=== PATIENT | female | born 1945 | race Caucasian/White ===

== ENCOUNTER 2023-09-20 08:22 | Inpatient (IN) ==
--- NOTE | 2023-09-20 09:10 | Emergency Department Note ---
Impression & Plan Lacunar stroke ED Provider Note NAME: PUMA TENA AGE: 78 SEX: F : 1945 ARRIVES VIA: Walk-In INFORMANT: Patient, ED PROVIDER(S): Tim Calderon MD CHIEF COMPLAINT: Right hand weakness HPI: This is an 78-year-old female presenting for right hand weakness. Patient states that on Sunday, 5 days ago, she noted a change in her handwriting. She notes no weakness about the arm, other extremities. She notes that her voice is little softer than usual but no dysarthria or aphasia. No walking without any difficulty otherwise. She has no fever, chills, nausea, vomiting. She notes a slight cough. No shortness of breath or chest pain. ROS: See above HPI for pertinent positives & negatives. A total of 10 systems reviewed and were otherwise negative. PAST MEDICAL HISTORY: See Below PAST SURGICAL HISTORY: See Below FAMILY HISTORY: See Below SOCIAL HISTORY: See Below HOME MEDICATIONS: See Below ALLERGIES: See Below VITALS: See Below PHYSICAL EXAMINATION: General: resting comfortably in no acute distress Head: Normocephalic and atraumatic Eyes: Normal inspection, extraocular muscles intact Ear, nose, throat: Normal external exam Neck: Normal range of motion Respiratory: lungs clear to auscultation bilaterally Cardiovascular: Regular rate/rhythm, no murmur GI: soft, nontender, no guarding or rebound Extremities: nontender, moves all extremities Neuro: The patient awake and alert, appropriately conversive, no focal deficits, symmetric faces Skin: Warm, dry, and intact MEDICAL DECISION MAKING: This is a 78-year-old female with right hand weakness x 5 days. Patient has no other neurologic symptoms. On my assessment there is no motor strength deficits. No sensation deficits. No dysmetria. NIH is 0. -CT of the head does reveal age age-indeterminate lacunar infarct -Otherwise no acute process -Blood work otherwise largely unrevealing -Due to patient's current history, previously infarct without clear workup, will admit for further stroke rule out Differential diagnosis: Stroke, hemorrhage, encephalopathy ER treatment provided: See below Diagnostics interpreted by me: ECG: ECG independently interpreted by me with normal sinus rhythm, rate of 66, normal axis, normal DE, normal QRS, normal QTc, no ST segment elevations consistent with STEMI criteria Cardiac Monitoring: An order was placed for continuous cardiac monitoring. The monitor shows a rate of 84 with sinus rhythm. Laboratory studies: As stated above and show below. Imaging studies: See below. Past Med/Surg History Medical History (Updated 09/21/23 @ 17:58 by Tim Calderon MD) Lacunar stroke Osteoarthritis Dysmetria Hyperlipidemia Surgical History History of hysterectomy Family History Other No pertinent family history Social History Smoking Status: Never smoker Second Hand Exposure: No; Hx Alcohol Use: No Hx Substance Use: No Preferred Language: Latvian Communication Ability: Effective Top Polisher Required: No Beliefs That Will Affect Care: None marital status: Current Living Situation: Spouse current occupational status: other Other Information That Helps Us Care for You: No Feels Safe at Home: Yes Safety Concerns: Feels Safe At This Time Childhood Exposure to Second-Hand Smoke: Yes caffeine: Yes Dental Care, Regularly: No Assistive Devices: None Allergies Allergies Allergy/AdvReac Type Severity Reaction Status Date / Time No Known Allergies Allergy Verified 09/18/23 10:11 Home Meds Home Medications Medication Instructions Recorded Confirmed fluticasone propionate 50 2 sprays intranasal DAILY PRN Other 10/01/19 09/20/23 mcg/actuation nasal spray,suspension Previous Rx's Medication Instructions Recorded omeprazole 20 mg capsule,delayed 20 mg PO DAILY #90 caps 05/21/23 release Results & Data (ED) Vital Signs Vital Signs - 24 hr 09/20/23 08:22 09/20/23 08:55 Temperature 36.6 C Temperature Source Temporal Artery Scan Pulse Rate 83 Pulse Rate [Right Finger] 79 Pulse Rhythm [Right Finger] Regular Pulse Strength [Right Finger] Normal Respiratory Rate 18 12 Respiratory Effort / Characteristics Non-Labored Respiratory Depth Normal Blood Pressure 165/68 H Blood Pressure [Left Arm] 144/75 H Blood Pressure Mean 100 Blood Pressure Mean [Left Arm] 98 Pulse Oximetry 99 97 Oxygen Delivery Method Room Air Sepsis Recent Fever Within 48 Hours No Sepsis New/Unexplained Change in Mental Status N/A Sepsis Action Taken by Nursing No Action Required Laboratory Data 09/21/23 03:53 09/21/23 03:53 Lab Results 09/20/23 09/20/23 Range/Units 09:07 09:24 WBC 7.83 (4.8-10.8) K/ul RBC 4.44 (4.20-5.40) M/uL Hgb 13.5 (12.0-16.0) g/dl Hct 41.8 (37.0-47.0) % MCV 94.1 (80.0-100.0) fL MCH 30.4 (25.0-34.0) pg MCHC 32.3 (32.0-36.0) g/dL RDW Std Deviation 49.3 H (36.4-46.3) fL RDW Coeff of Yanet 14.4 (11.5-14.5) % Plt Count 251 (130-400) K/uL MPV 9.7 (9.4-12.4) fL Immature Gran % (Auto) 0.1 % Neut % (Auto) 80.3 % Lymph % (Auto) 14.6 % Bollinger % (Auto) 3.2 % Eos % (Auto) 0.9 % Baso % (Auto) 0.9 % Neut # (Auto) 6.29 (1.40-6.50) K/uL Lymph # (Auto) 1.14 L (1.20-3.40) K/uL Bollinger # (Auto) 0.25 (0.11-0.59) K/uL Eos # (Auto) 0.07 (0.00-0.50) K/uL Baso # (Auto) 0.07 (0.00-0.20) K/uL Immature Gran # (Auto) 0.01 (0.01-0.20) K/uL Sodium 139 (136-145) mmol/L Potassium 4.3 (3.5-5.1) mmol/L Chloride 106 (98-107) mmol/L Carbon Dioxide 22 (21-32) mmol/L Anion Gap 11 (3-11) BUN 9 (6-23) mg/dl Creatinine 0.58 L (0.6-1.2) mg/dl Est Cr Clr Drug Dosing 64.2 ml/min Est GFR ( Amer) 103.0 ml/min Est GFR (Non-Af Amer) 88.9 ml/min BUN/Creatinine Ratio 15.5 (10-20) Glucose 98 (70-99(Fasting)) mg/dl Calcium 9.3 (8.6-10.3) mg/dl Troponin I High Sens 3.1 (0-14) pg/ml SARS-CoV-2 (PCR) NEGATIVE (Negative) Influenza Type A (PCR) Negative (Neg) Influenza Type B (PCR) Negative (Neg) RSV (RT-PCR) Negative (Neg) Administered Medications Acetaminophen (Acetaminophen 500 Mg Tab) 500 mg PO Q4H PRN PRN Reason: pain/fever/headache Stop: 10/20/23 18:59 Last Admin: 09/21/23 07:08 Dose: 500 mg Documented By: CHILDCARE AIDE Admin: 09/20/23 20:55 Dose: 500 mg Documented By: CHILDCARE AIDE Aspirin (Aspirin 81 Mg Ectab) 81 mg PO [facility] Stop: 10/21/23 08:59 Last Admin: 09/21/23 08:45 Dose: 81 mg Documented By: DLN Atorvastatin Calcium (Atorvastatin 40 Mg Tab) 40 mg PO [facility] Stop: 10/21/23 08:59 Last Admin: 09/21/23 08:44 Dose: 40 mg Documented By: DLN Diclofenac Sodium (Diclofenac Sod 1% Gel 100 Gm Tube) 2 gm EXT TID PRN; Protocol PRN Reason: Pain Stop: 10/20/23 20:59 Last Admin: 09/20/23 20:56 Dose: 2 gm Documented By: CHILDCARE AIDE Enoxaparin Sodium (Enoxaparin Inj 40 Mg/0.4 Ml Syr) [facility] Stop: 10/21/23 08:59 Last Admin: 09/21/23 08:45 Dose: 40 mg Documented By: ANDRESN Sodium Chloride (Nss) 1,000 mls @ 80 mls/hr IV .[id number] [facility] Stop: 10/21/23 17:44 Last Admin: 09/21/23 17:54 Dose: 80 mls/hr Documented By: ANDRESN Melatonin (Melatonin 3 Mg Tab) 6 mg PO HS PRN PRN Reason: Sleep Stop: 10/20/23 18:56 Last Admin: 09/20/23 20:56 Dose: 6 mg Documented By: CHILDCARE AIDE Pantoprazole Sodium (Pantoprazole 40 Mg Tab) 40 mg PO DAILY [facility] Stop: 10/21/23 08:59 Last Admin: 09/21/23 08:45 Dose: 40 mg Documented By: KENNA Discontinued Medications Acetaminophen (Acetaminophen 500 Mg Tab) 1,000 mg PO NOW STA Stop: 09/20/23 11:25 Last Admin: 09/20/23 12:09 Dose: 1,000 mg Documented By: ANYA Aspirin (Aspirin 81 Mg Chew) 324 mg PO NOW ONE Stop: 09/20/23 11:12 Last Admin: 09/20/23 12:09 Dose: 324 mg Documented By: ANYA Sodium Chloride (Nss) 500 mls @ 125 mls/hr IV .Q4H JHONATHAN Stop: 09/21/23 16:44 Last Infusion: 09/21/23 17:12 Dose: Infused Documented By: Admin: 09/21/23 13:01 Dose: 125 mls/hr Documented By: KENNA Ioversol (Optiray 320 125ml) 118 ml IV ONCE ONE Stop: 09/21/23 12:05 Last Admin: 09/21/23 12:04 Dose: 118 ml Documented By: ULISES Discharge Plan Visit Data Chief Complaint: Illness Stated Complaint: POSSIBLE BLOOD CLOT, ALTERED MENTAL ED Provider: Tim Calderon Discharge Problem: Lacunar stroke Patient Disposition: Admitted As Inpatient Discharge Instructions Interventions: ED Discharge Assessment Last Done: 09/20/23 12:18
[2023-09-20 09:21] LABS: Basophils # (auto) 0.07 K/uL (0.00-0.20); Basophils % (auto) 0.9 %; Eosinophils # (auto) 0.07 K/uL (0.00-0.50); Eosinophils % (auto) 0.9 %; Hematocrit (blood only) 41.8 % (37.0-47.0); Hemoglobin 13.5 g/dl (12.0-16.0); Immature Granulocytes # (auto) 0.01 K/uL (0.01-0.20); Immature Granulocytes % (auto) 0.1 %; Lymphocytes # (auto) 1.14 K/uL (1.20-3.40); Lymphocytes % (auto) 14.6 %; Mean Corpuscular Hemoglobin 30.4 pg (25.0-34.0); Mean Corpuscular Hgb Conc 32.3 g/dL (32.0-36.0); Mean Corpuscular Volume 94.1 fL (80.0-100.0); Mean Platelet Volume 9.7 fL (9.4-12.4); Monocytes # (auto) 0.25 K/uL (0.11-0.59); Monocytes % (auto) 3.2 %; Neutrophils # (auto) 6.29 K/uL (1.40-6.50); Neutrophils % (auto) 80.3 %; Platelet Count 251 K/uL (130-400); RDW Coefficient of Variation 14.4 % (11.5-14.5); RDW Standard Deviation 49.3 fL (36.4-46.3); Red Blood Count 4.44 M/uL (4.20-5.40); White Blood Count 7.83 K/ul (4.8-10.8)
--- NOTE | 2023-09-20 09:30 | CT Scan Report ---
CT SCAN OF THE BRAIN WITHOUT IV CONTRAST CLINICAL HISTORY: Right hand weakness. COMPARISON STUDY: No priors. TECHNIQUE: Unenhanced axial CT scan of the brain is performed from the vertex to the skull base. A do se lowering technique was utilized adhering to the principles of ALARA. CT DOSE: 625.8 mGy.cm FINDINGS: Brain parenchyma: There is an age indeterminate lacunar infarct in the left basal ganglia. There is a ge-related involutional change noting moderate subcortical and periventricular microangiopathic disea se. There is no hemorrhage, mass effect, or evidence of acute territorial ischemia by CT criteria. No extra-axial fluid collection is seen. Ventricles, sulci, cisterns: Prominent secondary to involutional change. Intracranial vasculature: There is atherosclerotic calcification of the cavernous carotid and vertebr al arteries. Calvarium: Unremarkable. Sinuses and mastoids: There is moderate mucosal thickening in the right maxillary antrum. The remaini ng visualized paranasal sinuses are clear. The mastoid air cells are well pneumatized. Orbits: The bony orbits are grossly intact. There are bilateral ocular lens implants. IMPRESSION: 1. There is no hemorrhage, mass effect, or evidence of acute territorial ischemia by CT criteria. 2. Age indeterminate lacunar infarct in the left basal ganglia. Correlate clinically. If warranted th is could be further assessed by MRI. ACT 112: Negative or not required by law. Electronically signed by: Ankush Jeong M.D. 09/20/2023 9:28 AM
[2023-09-20 09:36] LABS: BUN Creatinine Ratio 15.5 (10-20); Calcium 9.3 mg/dl (8.6-10.3); Creatinine Clr Calc Pharmacy 64.2 ml/min; Est GFR (Non-African American) 88.9 ml/min; Potassium 4.3 mmol/L (3.5-5.1)
[2023-09-20 09:41] LABS: Troponin I High Sensitivity 3.1 pg/ml (0-14)
[2023-09-20 10:21] LABS: Influenza A virus by PCR Negative (Neg); Influenza B virus by PCR Negative (Neg); RSV by PCR Negative (Neg); SARS CoV2 RNA(COVID-19) Ceph NEGATIVE (Negative)
--- NOTE | 2023-09-20 10:40 | History & Physical Report ---
Date of Service September 20, 2023 Assessment & Plan (1) Dysmetria: Plan: Strokelike symptoms, right hand dysmetria Patient reports abrupt right hand worsened coordination and dysmetria onset 09/16/2023 and not significantly changed since that time.. At bedside evaluation has trace dysmetria on the right compared to the left otherwise no focal neurologic symptoms appreciated. Sensation intact in upper and lower extremities bilaterally CThead with evidence of age-indeterminate left basal ganglier lacunar stroke MRI brain, angiography, ultrasound of the neck pending No history of A-fib, Limited echo for bubble study pending. Patient denies chest pain and dyspnea preceding this Patient is outside of the window for TNKase/not a candidate. Mild/minimal residual symptoms. Aspirin given, daily aspirin and atorvastatin started. Patient is outside the window for permissive hypertension, she is normotensive at time of admitting assessment. (2) Osteoarthritis: Plan: Patient has a history of osteoarthritis ( and records report that this is not rheumatoid) for which she travels yearly to [place] (contact information in H&P) and has received treatment at that center Discussed medical history with Dr. Casey Gusman [facility] at time of admission. Reports patient has been treated for osteoporosis and general arthritis with vitamin infusions, and stem cell infusions. Last infusion this past month. She has subsequently been started on methotrexate 2.5 mg 2.5 mg 3 times per week (Sunday/Sunday/Sunday) in addition to multivitamins and calcium. Unclear underlying type of arthritis, no imaging or labs available for immediate review. Pending copies of records from patient's . Methotrexate temporarily held pending records/collateral (3) Heartburn: Plan: Continue PPI daily (4) Hyperlipidemia: Plan: Statin as noted (5) Lacunar stroke: Plan DVT prophylaxis: Lovenox Disposition: Medical telemetry for completion of stroke workup CODE STATUS: DNR/DNI Diet: Heart healthy History of Present Illness Primary Care Provider: Ana M Wasserman PA-C Kina Du is a 78-year-old female with past medical history of GERD who was seen by her PCP for 3-4 days of fatigue on 09/12/2023 Patient is an [place] female who reports that she also gets medical care in [place] and [place], several times a year has various treatments including chemical chelation which improves chronic neck pain but have not improved her energy. She presents to the ER 09/20/2023 with focal right hand weakness, and notes that 5 days ago she had difficulty with handwriting. She is right arm dominant. She has not had expressive or receptive aphasia, no facial droop, no one-sided lower extremity weakness although does feel weak all over. On ER evaluation she has no leukocytosis, hemoglobin is normal, BMP is without derangement, high-sensitivity troponin is normal, and quad screen is negative. CT of the head shows a age-indeterminate left basal ganglia infarct, and otherwise no acute territorial ischemia/mass effect/hemorrhage EKG shows normal sinus rhythm without territorial ischemia. No afib Kina reports she has had trouble with handwriting with her RIGHT handonly, and some change in voice. Denies aphasia, but notes her speech and voice has been different. Denies slurring, but has had a change she can't fully describe. Endorses intermittent headaches chronically which improve with tylenol or ibuprofen. Tries not to take too much ibuprofen due to GERD, tylenol works better for her. No chest pain or chest pressure No fevers, chills, or sweats No abdominal pain Peeing normally. Denies weakness. NOtes her handwriting suddenly changed, was more difficult and clumbsy to write. Started abruptly on Sunday. Endorses past history of arthritis pain in her neck which is completely resolved. Was in [place] a few weeks ago, came back last . Travels [facility] for the last 27 years. Travels by train, gets up and walks regularly. no leg pain, no leg swelling. No shortness of breath or dyspnea. Gets vitamins C infusions in [place], denies history of heavy metal tx or chelation. She did have an MRI for her neck arthritis which improved with vitamin infusions. Now does well with just tylenol or ibuprofen. Did also have a EGD which showed an ulcer a few weeks ago/august. Will avoid further NSAIDS. Had a colonoscopy with it which was normal. Dr. Peña . [facility] Dr. Casey Myers [place] and [facility]. [phone] ext [phone] -> ask for Dr. Casey Heard Discussed with Dr. Casey Jameson at info above. Reports patient was seen in their clinic for osteoporosis and arthritis of the neck, MRI did not show any bony lesions or abnormalities. Due to severe osteoarthritis patient was treated with vitamin infusions, stem cell infusion, and has been on methotrexate 2.5 mg Sunday/Sunday/Fridays which she has been continued on. He reports that she has been on additional vitamin infusions. Reports no infusions have any evidence suggesting increased stroke risk, and no other active ingredients. D per patient medications are as below: [facility] collateral [facility] MEthotrexate Sunday/Sunday/Sunday 2.5 mg TI Somazina RMsol Q12H Unival before meals Senna BID Nopal y Linaza Q12H Angeliq 1 tab after breakfast Proesse 1 tab after breakfast Allergies Allergy/AdvReac Type Severity Reaction Status Date / Time No Known Allergies Allergy Verified 09/18/23 10:11 Home Medications Medication Instructions Recorded Confirmed Type fluticasone propionate 50 2 sprays intranasal DAILY PRN Other 10/01/19 09/20/23 History mcg/actuation nasal spray,suspension omeprazole 20 mg capsule,delayed 20 mg PO DAILY #90 caps 05/21/23 09/20/23 Rx release Past Med/Surg History Medical History (Updated 09/20/23 @ 11:26 by Vu Shaffer MD) Lacunar stroke Osteoarthritis Dysmetria Hyperlipidemia Surgical History History of hysterectomy Family History Other No pertinent family history Social History Smoking Status: Never smoker Second Hand Exposure: No; Hx Alcohol Use: No Hx Substance Use: No Preferred Language: Uzbek marital status: Current Living Situation: Spouse current occupational status: other Feels Safe at Home: Yes Childhood Exposure to Second-Hand Smoke: Yes caffeine: Yes Dental Care, Regularly: No Physical Exam Physical Exam: General: A&Ox3. NAD. Cooperative. HEENT: Atraumatic, normocephalic. Pulm: CTAB A&P. -wheezes, -rales, -rhonchi. Symmetrical chest rise. No increased work of breathing. No respiratory distress. Cardiac: RRR, -mrg. Radial pulses intact and symmetrical. Abdominal: Nontender, nondistended, soft. BS present. CRANIAL NERVES: II: Pupils equal and reactive, no relative afferent pupillary defect, no VF cuts III, IV, : EOM intact, no gaze preference or deviation, no nystagmus. V: normal sensation in V1, V2, and V3 segments bilaterally VII: no asymmetry, no nasolabial fold flattening VIII: normal hearing to speech IX, X: normal palatal elevation, no uvular deviation XI: 5/5 head turn and 5/5 shoulder shrug bilaterally XII: midline tongue protrusion MOTOR: RUE: 5/5 Elbow flexion/extension, wrist flexi on/extension 5/5 sander and buffer strength, finger flexion/extens ion, interosseus LUE: 5/5 Elbow flexion/extension, wrist flexi on/extension 5/5 sander and buffer strength, finger flexion/extens ion, interosseus RLE: 5/5 to hip flexion, knee flexion/extensi on, ankle dorsiflexion/plantarflexion LLE: 5/5 to hip flexionn, knee flexion/extens ion, ankle dorsiflexion/plantarflexion SENSORY: Normal to touch, in upper and lower extremities without deficit or asymmetry COORD: LEFT Normal finger to nose and heel to rey, no tremor, no dysmetria. Trace dysmetria on R finger to nose tending. Results & Data Results & Data Vital Signs (Past 12 Hours) Vital Signs Temp Pulse Pulse Resp BP BP Pulse Ox 09/20/23 09:40 71 18 127/68 100 09/20/23 09:15 75 09/20/23 08:55 79 12 144/75 H 97 09/20/23 08:50 70 18 158/95 H 99 09/20/23 08:22 36.6 C 83 18 165/68 H 99 O2 Del Method 09/20/23 09:40 Room Air 09/20/23 09:15 09/20/23 08:55 Room Air 09/20/23 08:50 Room Air 09/20/23 08:22 PG Care Time/CCT Total # of Minutes Spent Total Time Spent with Patient: Total time spent is greater than 50% in coordination of care (as documented) at patient's floor/unit and/or counseling patient: Coding Level of Care Code 38324 INT INP/OBS CARE 3/75MIN Diagnoses Dysmetria R27.8 Osteoarthritis M19.90 Heartburn R12 Hyperlipidemia E78.5 Lacunar stroke I63.81
[2023-09-20] MEDS ORDERED: PHARMACIST DISCHARGE MED REC CONSULT PRN (11:05)
[2023-09-20] MEDS ORDERED: ASPIRIN 81 MG CHEW PO ONE (11:11)
[2023-09-20] MEDS ORDERED: ACETAMINOPHEN 500 MG TAB PO STA (11:24)
[2023-09-20 12:26] LABS: Appearance Urine Clear (Clear); Bilirubin Urine Negative (Negative); Blood Urine Negative (Negative); Color Urine Yellow; Glucose Urine UA Negative (Negative); Ketones Urine 1+ (Negative); Leukocyte Esterase Urine Negative (Negative); Nitrite Urine Negative (Negative); Protein Urine Negative (Negative); Specific Gravity Urine 1.007 (1.000-1.030); Urobilinogen Urine Negative (Negative); pH Urine 6.5 (4.5-7.5)
--- NOTE | 2023-09-20 13:57 | XRay Report ---
KUB HISTORY: Screening for MRI MRI COMPARISON: None. FINDINGS: Left mid and upper abdominal surgical clips. Calcifications project over the gluteal distri bution/lower lateral abdomen. There is mild to moderate colonic fecal retention. Nonobstructive bowel gas pattern. Renal shadows obscured by bowel gas. No renal calculi. No ureteral calculi. No pneumop eritoneum or pneumatosis. No fracture. IMPRESSION: 1. Nonobstructive bowel gas pattern. 2. Left upper and left mid abdominal surgical clips. ACT 112: Negative or not required by law. The above report was generated using voice recognition software. It may contain grammatical, syntax o r spelling errors. Electronically signed by: Mehdi Titus M.D. 09/20/2023 1:55 PM
--- NOTE | 2023-09-20 15:11 | Magnetic Resonance Report ---
MR brain wo con HISTORY: 78 years-old Female cva acute right hand weakness with stroke like symptoms for approximate ly 5 days. COMPARISON: Head CT of same day TECHNIQUE: Multiplanar multisequence MRI of the brain was obtained without the use of IV contrast. FINDINGS: 2.5 x 1.3 cm focus of restricted diffusion is noted within the left cutler radiata/aspect of the left lentiform nucleus on image 14 series 4 with mildly decreased signal on ADC map, increased T2/FLAIR s ignal. No additional restricted diffusion identified. No acute intracranial hemorrhage, midline shift , abnormal extra axial collection, hydrocephalus or other intra-axial mass. Involutional changes with mild to moderate T2/FLAIR hyperintense foci throughout the white matter. Cerebral venous sinuses and major arterial flow voids appear patent. Prior bilateral lens repair. Chr onic volume loss with mucosal thickening in the left maxillary sinus. IMPRESSION: 1. Acute to subacute appearing 2.5 cm infarct of the left frontal lobe cutler radiata/superior aspect of the left lentiform nucleus. 2. No acute intracranial hemorrhage, midline shift or hydrocephalus. 3. Involutional changes with chronic microvascular ischemic disease. ACT 112: Negative or not required by law. The above report was generated using voice recognition software. It may contain grammatical, syntax o r spelling errors. Electronically signed by: Mehdi Titus M.D. 09/20/2023 3:10 PM
--- NOTE | 2023-09-20 15:23 | Magnetic Resonance Report ---
Brain MRA HISTORY: Right hand weakness. Stroke. TECHNIQUE: 3-D [id number] MRA of the brain was performed without contrast. COMPARISON STUDY: Head CT 09/20/2023. FINDINGS: Visualized intracranial internal carotid arteries, distal vertebral arteries, and basilar a rtery are widely patent. There is no significant stenosis, occlusion, or aneurysm seen within the betty ateral ACAs, MCAs, or cold header. IMPRESSION: No significant stenosis, occlusion, or aneurysm within the [place]. ACT 112: Negative or not required by law. Electronically signed by: Sukh Parada M.D. 09/20/2023 3:22 PM
--- NOTE | 2023-09-20 16:19 | Ultrasound Report ---
ULTRASOUND OF THE CAROTID ARTERIES CLINICAL HISTORY: Stroke. COMPARISON STUDY: No priors. TECHNIQUE: Real-time, grayscale, and color Doppler sonography of the carotid arteries is performed. I mages are reviewed in the transverse and longitudinal planes. FINDINGS: The carotid arteries are patent bilaterally and demonstrate antegrade flow. There is minimal atherosc lerotic plaque seen in the carotid bulbs. Normal doppler arterial waveforms are seen throughout. [facility] measurements are listed below. Common carotid peak systolic velocity (cm/sec): RIGHT: 64 LEFT: 66 ICA proximal peak systolic velocity (cm/sec): RIGHT: 58 LEFT: 58 ICA mid peak systolic velocity (cm/sec): RIGHT: 69 LEFT: 64 ICA distal peak systolic velocity (cm/sec): RIGHT: 69 LEFT: 59 ICA/CC peak systolic ratio: RIGHT: 1. LEFT: 1.0 Antegrade flow was shown in the vertebral arteries. The external carotid arteries are patent. IMPRESSION: 1. There is no sonographic evidence of hemodynamically significant stenosis in the right or left [place] arterial system. 2. Antegrade flow is shown in the vertebral arteries. ACT 112: Negative or not required by law. Electronically signed by: Ankush Jeong M.D. 09/20/2023 4:18 PM
--- NOTE | 2023-09-20 18:07 | XCELERA ---
[id number] [email or web address]\[id number]
[2023-09-20] MEDS ORDERED: DICLOFENAC SOD 1% GEL 100 GM TUBE EXT PRN (20:10)
[2023-09-20] MEDS: ACETAMINOPHEN 500 MG TAB PO PRN (20:55)
[2023-09-20] MEDS: MELATONIN 3 MG TAB PO PRN (20:56)
[2023-09-21 04:55] LABS: Basophils # (auto) 0.06 K/uL (0.00-0.20); Basophils % (auto) 0.9 %; Eosinophils # (auto) 0.21 K/uL (0.00-0.50); Eosinophils % (auto) 3.1 %; Hematocrit (blood only) 37.3 % (37.0-47.0); Hemoglobin 12.1 g/dl (12.0-16.0); Immature Granulocytes # (auto) 0.02 K/uL (0.01-0.20); Immature Granulocytes % (auto) 0.3 %; Lymphocytes # (auto) 1.47 K/uL (1.20-3.40); Lymphocytes % (auto) 21.5 %; Mean Corpuscular Hgb Conc 32.4 g/dL (32.0-36.0); Mean Corpuscular Volume 92.6 fL (80.0-100.0); Mean Platelet Volume 9.9 fL (9.4-12.4); Monocytes # (auto) 0.43 K/uL (0.11-0.59); Monocytes % (auto) 6.3 %; Neutrophils # (auto) 4.65 K/uL (1.40-6.50); Neutrophils % (auto) 67.9 %; Platelet Count 261 K/uL (130-400); RDW Coefficient of Variation 14.2 % (11.5-14.5); RDW Standard Deviation 48.3 fL (36.4-46.3); Red Blood Count 4.03 M/uL (4.20-5.40); White Blood Count 6.84 K/ul (4.8-10.8)
[2023-09-21 05:08] LABS: BUN Creatinine Ratio 22.7 (10-20); Calcium 8.8 mg/dl (8.6-10.3); Chol HDL Ratio 3.3 (0-5); Creatinine Clr Calc Pharmacy 56.5 ml/min; Est GFR (African American) 98.8 ml/min; Est GFR (Non-African American) 85.2 ml/min; Potassium 3.8 mmol/L (3.5-5.1)
[2023-09-21] MEDS: ACETAMINOPHEN 500 MG TAB PO PRN ×2 (07:08→19:49)
[2023-09-21 07:27] LABS: Estimated Average Glucose 108 mg/dl; Hemoglobin A1C 5.4 % (4.5-5.6)
[2023-09-21] MEDS: ATORVASTATIN 40 MG TAB PO SCH (08:44)
[2023-09-21] MEDS: ENOXAPARIN INJ 40 MG/0.4 ML SYR SQ SCH (08:45)
[2023-09-21] MEDS: PANTOprazole 40 MG TAB PO SCH (08:45)
[2023-09-21] MEDS: ASPIRIN 81 MG ECTAB PO SCH (08:45)
--- NOTE | 2023-09-21 09:09 | Pharmacy Report ---
- Date of Service September 21, 2023 - Pharmacy CVA/TIA Medication Review Medications to Prevent Stroke handout has been added to the patients discharge packet. Antiplatelet(s) * Aspirin 81 mg PO daily Cholesterol * High intensity statin: atorvastatin 40 mg daily DVT Prophylaxis * Provider to order SC Heparin today if patient stays Therapeutic Anticoagulation * No history of Afib/Aflutter noted Type 2 Diabetes * Patient does not have T2DM
[2023-09-21] MEDS ORDERED: OPTIRAY 320 125ml IV ONE (12:04)
--- NOTE | 2023-09-21 12:17 | CT Scan Report ---
CT ANGIOGRAM OF THE CHEST CLINICAL HISTORY: Tachycardia. COMPARISON STUDY: No priors. TECHNIQUE: Following the IV administration of 118 cc of Optiray 320, CT angiogram of the chest was pe rformed from the upper abdomen to the thoracic inlet utilizing the pulmonary embolus protocol. Images are reviewed in the axial, sagittal, and coronal planes. 3-D MIPS images are created and assessed. I V contrast was administered without complication. A dose lowering technique was utilized adhering to the principles of ALARA. CT DOSE: 374.11 mGy.cm FINDINGS: Thyroid: Normal in size and heterogeneous in attenuation. Thoracic aorta: There is atherosclerotic calcification of the thoracic aorta, which is normal in [place] and demonstrates standard 3-vessel arch anatomy. No dissection is seen. Pulmonary vasculature: The pulmonary trunk is normal in caliber. There are no filling defects identif ied in main, lobar, or segmental pulmonary branches to suggest pulmonary embolus. Heart: The heart is enlarged and without pericardial effusion. The coronary arteries are densely calc ified. Lungs and pleural spaces: Evaluation of the lung parenchyma is degraded by motion artifact. There is no airspace consolidation or pleural effusion. Dependent scarring/atelectasis is noted at the lung ba ses. The trachea and central airways are clear. There are scattered calcified granulomas. A 3 mm righ t middle lobe pulmonary nodule is seen on image #62 and a 3 mm nodule in the lingula is seen on image #99. Mediastinum: There is no mediastinal lymphadenopathy. Katherin: Clear. Axillae: There is no axillary lymphadenopathy. Upper abdomen: Postoperative change is suggested in the stomach. Partially visualized upper abdominal viscera is otherwise grossly unremarkable. Skeletal structures: The skeletal structures are osteopenic. Degenerative change is noted in the shou lders and spine. No lytic or blastic bony lesions are seen. IMPRESSION: 1. There is no evidence of pulmonary embolus in the main, lobar, or segmental pulmonary arteries. 2. There is no airspace consolidation or pleural effusion. 3. Cardiomegaly. 4. Additional findings as above. ACT 112: Negative or not required by law. Electronically signed by: Ankush Jeong M.D. 09/21/2023 12:16 PM
[2023-09-21] MEDS ORDERED: SODIUM CHLORIDE 0.9% 500 ML IV SCH (12:45)
--- NOTE | 2023-09-21 17:37 | Hospitalist Progress Note ---
Date of Service September 21, 2023 Assessment & Plan (1) Stroke: Plan: MRI brain -- Acute to subacute appearing 2.5 cm infarct of the left frontal lobe cutler radiata/superior aspect of the left lentiform nucleus. Likely a small vessel stroke. MRA brain negative. Carotid duplex study negative. Echo w/o source of thrombus. Tele without a.fib. lipid profile parameters noted. start asa 81mg daily for secondary prevention. start lipitor 40mg daily for secondary prevention. hba1c without evidence of T2DM. PT, OT, speech evals noted. Rehab not needed post-d/c. (2) Hyperlipidemia: Plan: lipid parameters -- LDL - 111. HDL - 60. Triglycerides - 124. start lipitor 40mg daily (3) Sinus tachycardia: Plan: 2nd to volume depletion? +orthostatic BPs this afternoon. TSH wnl. CBC wnl. Echo with preserved EF. CTA chest - obtained due to recent travel from [place] - NO PE. Gave 500cc of NS post-CTA chest; since still a little tachy and still with orthostasis will continue IV fluids overnight. Plan DVT proph - lovenox 40mg daily change observation to full admission status anticipate d/c home tomorrow Admission and Anticipated Discharge Date Admission Date: September 20, 2023 Subjective tele overnight - NSR, sinus tach with activity - sometimes up to 140s/150s no a.fib or a.flutter patient reports ongoing mild right hand weakness and dyspraxia no right arm or right leg weakness no left sided symptoms speech - according to pt's - is still a little slurred but no worse than yesterday patient reports having traveled back from [place] within the last 1-[address] Review of Systems Review of Systems: cv - no chest pain pulm - no dyspnea GI - no abd pain Physical Exam Physical Exam: gen - NAD, pleasant mouth - MM slightly dry neck - no JVD heart - RRR, s1 s2, no murmur lungs - CTA b/l abd - soft NT ND BS+ ext - no edema, pulses 2+ b/l neuro - no facial droop; speech slightly dysarthric; rapid alternating movements right hand modestly impaired relative to left hand; finger/nose/finger maneuver wnl b/l; strength - all muscle groups 5/5 except R hand 4-5/5; gait not tested Results & Data Results & Data Vital Signs (Past 12 Hours) Vital Signs Temp Pulse Pulse Resp BP Pulse Ox O2 Del Method 09/21/23 15:55 36.7 C 84 16 125/74 96 Room Air 09/21/23 15:00 82 09/21/23 11:23 36.6 C 82 17 113/69 94 Room Air 09/21/23 08:20 36.7 C 71 16 122/70 94 Room Air 09/21/23 07:35 68 09/21/23 07:35 Room Air Laboratory Results Laboratory Results - last 24 hr 09/21/23 03:53 WBC 6.84 RBC 4.03 L Hgb 12.1 Hct 37.3 MCV 92.6 MCH 30.0 MCHC 32.4 RDW Std Deviation 48.3 H RDW Coeff of [place] 14.2 Plt Count 261 MPV 9.9 Immature Gran % (Auto) 0.3 Neut % (Auto) 67.9 Lymph % (Auto) 21.5 [place] % (Auto) 6.3 Eos % (Auto) 3.1 Baso % (Auto) 0.9 Neut # (Auto) 4.65 Lymph # (Auto) 1.47 [place] # (Auto) 0.43 Eos # (Auto) 0.21 Baso # (Auto) 0.06 Immature Gran # (Auto) 0.02 Sodium 136 Potassium 3.8 Chloride 104 Carbon Dioxide 22 Anion Gap 10 BUN 15 Creatinine 0.66 Est Cr Clr Drug Dosing 56.5 Est GFR ( Amer) 98.8 Est GFR (Non-Af Amer) 85.2 BUN/Creatinine Ratio 22.7 H Glucose 97 Estimat Average Glucose 108 Hemoglobin A1c 5.4 Calcium 8.8 Triglycerides 124 Cholesterol 196 LDL Cholesterol, Calc 111 VLDL Cholesterol, Calc 25 HDL Cholesterol 60 Cholesterol/HDL Ratio 3.[address] 09/20/23 08:59 CT SCAN OF THE BRAIN WITHOUT IV CONTRAST CLINICAL HISTORY: Right hand weakness. COMPARISON STUDY: No priors. TECHNIQUE: Unenhanced axial CT scan of the brain is performed from the vertex to the skull base. A dose lowering technique was utilized adhering to the principles of ALARA. CT DOSE: 625.8 mGy.cm FINDINGS: Brain parenchyma: There is an age indeterminate lacunar infarct in the left basal ganglia. There is age-related involutional change noting moderate subcortical and periventricular microangiopathic disease. There is no hemorrhage, mass effect, or evidence of acute territorial ischemia by CT criteria. No extra-axial fluid collection is seen. Ventricles, sulci, cisterns: Prominent secondary to involutional change. Intracranial vasculature: There is atherosclerotic calcification of the cavernous carotid and vertebral arteries. Calvarium: Unremarkable. Sinuses and mastoids: There is moderate mucosal thickening in the right maxillary antrum. The remaining visualized paranasal sinuses are clear. The mastoid air cells are well pneumatized. Orbits: The bony orbits are grossly intact. There are bilateral ocular lens implants. IMPRESSION: 1. There is no hemorrhage, mass effect, or evidence of acute territorial ischemia by CT criteria. 2. Age indeterminate lacunar infarct in the left basal ganglia. Correlate clinically. If warranted this could be further assessed by MRI. ACT 112: Negative or not required by law. Electronically signed by: Ankush Jeong M.D. 09/20/2023 9:28 AM Brain MRI 09/20/23 11:11 MR brain wo con HISTORY: 78 years-old Female cva acute right hand weakness with stroke like symptoms for approximately 5 days. COMPARISON: Head CT of same day TECHNIQUE: Multiplanar multisequence MRI of the brain was obtained without the use of IV contrast. FINDINGS: 2.5 x 1.3 cm focus of restricted diffusion is noted within the left cutler radiata/aspect of the left lentiform nucleus on image 14 series 4 with mildly decreased signal on ADC map, increased T2/FLAIR signal. No additional restricted diffusion identified. No acute intracranial hemorrhage, midline shift, abnormal extra axial collection, hydrocephalus or other intra-axial mass. Involutional changes with mild to moderate T2/FLAIR hyperintense foci throughout the white matter. Cerebral venous sinuses and major arterial flow voids appear patent. Prior bilateral lens repair. Chronic volume loss with mucosal thickening in the left maxillary sinus. IMPRESSION: 1. Acute to subacute appearing 2.5 cm infarct of the left frontal lobe cutler radiata/superior aspect of the left lentiform nucleus. 2. No acute intracranial hemorrhage, midline shift or hydrocephalus. 3. Involutional changes with chronic microvascular ischemic disease. ACT 112: Negative or not required by law. The above report was generated using voice recognition software. It may contain grammatical, syntax or spelling errors. Electronically signed by: Mehdi Titus M.D. 09/20/2023 3:10 PM Carotid Doppler Study 09/20/23 11:14 ULTRASOUND OF THE CAROTID ARTERIES CLINICAL HISTORY: Stroke. COMPARISON STUDY: No priors. TECHNIQUE: Real-time, grayscale, and color Doppler sonography of the carotid arteries is performed. Images are reviewed in the transverse and longitudinal planes. FINDINGS: The carotid arteries are patent bilaterally and demonstrate antegrade flow. There is minimal atherosclerotic plaque seen in the carotid bulbs. Normal doppler arterial waveforms are seen throughout. Velocity measurements are listed below. Common carotid peak systolic velocity (cm/sec): RIGHT: 64 LEFT: 66 ICA proximal peak systolic velocity (cm/sec): RIGHT: 58 LEFT: 58 ICA mid peak systolic velocity (cm/sec): RIGHT: 69 LEFT: 64 ICA distal peak systolic velocity (cm/sec): RIGHT: 69 LEFT: 59 ICA/CC peak systolic ratio: RIGHT: 1. LEFT: 1.0 Antegrade flow was shown in the vertebral arteries. The external carotid arteries are patent. IMPRESSION: 1. There is no sonographic evidence of hemodynamically significant stenosis in the right or left carotid arterial system. 2. Antegrade flow is shown in the vertebral arteries. ACT 112: Negative or not required by law. Electronically signed by: Ankush Jeong M.D. 09/20/2023 4:18 PM Head MRA 09/20/23 11:14 Brain MRA HISTORY: Right hand weakness. Stroke. TECHNIQUE: 3-D [id number] MRA of the brain was performed without contrast. COMPARISON STUDY: Head CT 09/20/2023. FINDINGS: Visualized intracranial internal carotid arteries, distal vertebral arteries, and basilar artery are widely patent. There is no significant stenosis, occlusion, or aneurysm seen within the bilateral ACAs, MCAs, or medical referral coordinator. IMPRESSION: No significant stenosis, occlusion, or aneurysm within the [place]. ACT 112: Negative or not required by law. Electronically signed by: Sukh Parada M.D. 09/20/2023 3:22 PM KUB X-Ray 09/20/23 11:59 KUB HISTORY: Screening for MRI MRI COMPARISON: None. FINDINGS: Left mid and upper abdominal surgical clips. Calcifications project over the gluteal distribution/lower lateral abdomen. There is mild to moderate colonic fecal retention. Nonobstructive bowel gas pattern. Renal shadows obscured by bowel gas. No renal calculi. No ureteral calculi. No pneumoperitoneum or pneumatosis. No fracture. IMPRESSION: 1. Nonobstructive bowel gas pattern. 2. Left upper and left mid abdominal surgical clips. ACT 112: Negative or not required by law. The above report was generated using voice recognition software. It may contain grammatical, syntax or spelling errors. Electronically signed by: Mehdi Titus M.D. 09/20/2023 1:55 PM Chest CTA 09/21/23 10:55 CT ANGIOGRAM OF THE CHEST CLINICAL HISTORY: Tachycardia. COMPARISON STUDY: No priors. TECHNIQUE: Following the IV administration of 118 cc of Optiray 320, CT an giogram of the chest was performed from the upper abdomen to the thoracic inlet utilizing the pulmonary embolus protocol. Images are reviewed in the axial, sagittal, and coronal planes. 3-D MIPS images are created and assessed. IV contrast was administered without complication. A dose lowering technique was utilized adhering to the principles of ALARA. CT DOSE: 374.11 mGy.cm FINDINGS: Thyroid: Normal in size and heterogeneous in attenuation. Thoracic aorta: There is atherosclerotic calcification of the thoracic aorta, which is normal in caliber and demonstrates standard 3-vessel arch anatomy. No dissection is seen. Pulmonary vasculature: The pulmonary trunk is normal in caliber. There are no filling defects identified in main, lobar, or segmental pulmonary branches to suggest pulmonary embolus. Heart: The heart is enlarged and without pericardial effusion. The coronary arteries are densely calcified. Lungs and pleural spaces: Evaluation of the lung parenchyma is degraded by motion artifact. There is no airspace consolidation or pleural effusion. Dependent scarring/atelectasis is noted at the lung bases. The trachea and central airways are clear. There are scattered calcified granulomas. A 3 mm right middle lobe pulmonary nodule is seen on image #62 and a 3 mm nodule in the lingula is seen on image #99. Mediastinum: There is no mediastinal lymphadenopathy. Katherin: Clear. Axillae: There is no axillary lymphadenopathy. Upper abdomen: Postoperative change is suggested in the stomach. Partially visualized upper abdominal viscera is otherwise grossly unremarkable. Skeletal structures: The skeletal structures are osteopenic. Degenerative change is noted in the shoulders and spine. No lytic or blastic bony lesions are seen. IMPRESSION: 1. There is no evidence of pulmonary embolus in the main, lobar, or segmental pulmonary arteries. 2. There is no airspace consolidation or pleural effusion. 3. Cardiomegaly. 4. Additional findings as above. ACT 112: Negative or not required by law. Electronically signed by: Ankush Jeong M.D. 09/21/2023 12:16 PM PG Care Time/CCT Total # of Minutes Spent Total Time Spent with Patient: Total time spent is greater than 50% in coordination of care (as documented) at patient's floor/unit and/or counseling patient: Coding Level of Care Code 79471 SUB INP/OBS CARE 2/35MIN Diagnoses Stroke I63.9 Hyperlipidemia E78.5 Sinus tachycardia R00.0
[2023-09-21] MEDS: SODIUM CHLORIDE 0.9% 1,000 ML IV SCH (17:54)
[2023-09-21] MEDS: MELATONIN 3 MG TAB PO PRN (19:49)
--- NOTE | 2023-09-22 05:52 | Electrocardiogram Report ---
Test Reason : Blood Pressure : / mmHG Vent. Rate : 066 BPM Atrial Rate : 066 BPM P-R Int : 122 ms QRS Dur : 080 ms QT Int : 380 ms P-R-T Axes : -16 -08 020 degrees QTc Int : 398 ms Normal sinus rhythm Nonspecific T wave abnormality No previous ECGs available Confirmed by Hosea Sommer ([id number]) on 09/22/2023 5:51:32 AM Referred By: REFERRED SELF Confirmed By:Hosea Sommer
[2023-09-22] MEDS: SODIUM CHLORIDE 0.9% 1,000 ML IV SCH (06:40)
[2023-09-22 06:47] LABS: BUN Creatinine Ratio 24.1 (10-20); Calcium 8.8 mg/dl (8.6-10.3); Creatinine Clr Calc Pharmacy 64.2 ml/min; Est GFR (Non-African American) 88.9 ml/min; Potassium 3.8 mmol/L (3.5-5.1)
[2023-09-22] MEDS: ATORVASTATIN 40 MG TAB PO SCH (08:55)
[2023-09-22] MEDS: ENOXAPARIN INJ 40 MG/0.4 ML SYR SQ SCH (08:55)
[2023-09-22] MEDS: ASPIRIN 81 MG ECTAB PO SCH (08:55)
[2023-09-22] MEDS: PANTOprazole 40 MG TAB PO SCH (08:55)
--- NOTE | 2023-09-22 10:48 | Discharge Summary ---
Date of Service date of admission - September 20, 2023 date of discharge - September 22, 2023 Admission HPI Per Admitting Provider Kina Du is a 78-year-old female with past medical history of GERD who was seen by her PCP for 3-4 days of fatigue on 09/12/2023 Patient is an [place] female who reports that she also gets medical care in [place] and [place], several times a year has various treatments including chemical chelation which improves chronic neck pain but have not improved her energy. She presents to the ER 09/20/2023 with focal right hand weakness, and notes that 5 days ago she had difficulty with handwriting. She is right arm dominant. She has not had expressive or receptive aphasia, no facial droop, no one-sided lower extremity weakness although does feel weak all over. On ER evaluation she has no leukocytosis, hemoglobin is normal, BMP is without derangement, high-sensitivity troponin is normal, and quad screen is negative. CT of the head shows a age-indeterminate left basal ganglia infarct, and otherwise no acute territorial ischemia/mass effect/hemorrhage EKG shows normal sinus rhythm without territorial ischemia. No afib Kina reports she has had trouble with handwriting with her RIGHT handonly, and some change in voice. Denies aphasia, but notes her speech and voice has been different. Denies slurring, but has had a change she can't fully describe. Endorses intermittent headaches chronically which improve with tylenol or ibuprofen. Tries not to take too much ibuprofen due to GERD, tylenol works better for her. No chest pain or chest pressure No fevers, chills, or sweats No abdominal pain Peeing normally. Denies weakness. NOtes her handwriting suddenly changed, was more difficult and clumbsy to write. Started abruptly on Sunday. Endorses past history of arthritis pain in her neck which is completely resolved. Was in [place] a few weeks ago, came back last . Travels [place] and [place] intermittently for the last 27 years. Travels by train, gets up and walks regularly. no leg pain, no leg swelling. No shortness of breath or dyspnea. Gets vitamins C infusions in [place], denies history of heavy metal tx or chelation. She did have an MRI for her neck arthritis which improved with vitamin infusions. Now does well with just tylenol or ibuprofen. Did also have a EGD which showed an ulcer a few weeks ago/august. Will avoid further NSAIDS. Had a colonoscopy with it which was normal. Dr. Peña . [facility] Dr. Casey Myers [facility] and [facility]. [phone] ext [phone] -> ask for Dr. Casey Heard Discussed with Dr. Casey Jameson at info above. Reports patient was seen in their clinic for osteoporosis and arthritis of the neck, MRI did not show any bony lesions or abnormalities. Due to severe osteoarthritis patient was treated with vitamin infusions, stem cell infusion, and has been on methotrexate 2.5 mg Sunday/Sunday/Fridays which she has been continued on. He reports that she has been on additional vitamin infusions. Reports no infusions have any evidence suggesting increased stroke risk, and no other active ingredients. D per patient medications are as below: [facility] MEthotrexate Sunday/Sunday/Sunday 2.5 mg TI Somazina RMsol Q12H Unival before meals Senna BID Nopal y Linaza Q12H Angeliq 1 tab after breakfast Proesse 1 tab after breakfast Principal Diagnosis 1. 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 mild hyperlipidemia 3. recently diagnosed gastric (via endoscopy in [place]) 4. chronic joint pain 5. tiny pulmonary nodules x [address] chest - no follow-up needed Discharge Exam gen - NAD, pleasant mouth - MMM neck - no JVD heart - RRR, s1 s2, no murmur lungs - CTA b/l abd - soft NT ND BS+ ext - no edema, pulses 2+ b/l neuro - no facial droop; speech slightly dysarthric; rapid alternating movements right hand slightly impaired relative to left hand; finger/nose/finger maneuver wnl b/l; strength - all muscle groups 5/5 except R hand 4-5/5; gait not tested Discharge Data Allergies Allergy/AdvReac Type Severity Reaction Status Date / Time No Known Allergies Allergy Verified 09/18/23 10:11 Consultations PT, OT Speech therapy Procedures Performed Echocardiogram: Ordered Studies Head CT 09/20/23 08:59 CT SCAN OF THE BRAIN WITHOUT IV CONTRAST CLINICAL HISTORY: Right hand weakness. COMPARISON STUDY: No priors. TECHNIQUE: Unenhanced axial CT scan of the brain is performed from the vertex to the skull base. A dose lowering technique was utilized adhering to the principles of ALARA. CT DOSE: 625.8 mGy.cm FINDINGS: Brain parenchyma: There is an age indeterminate lacunar infarct in the left basal ganglia. There is age-related involutional change noting moderate subcortical and periventricular microangiopathic disease. There is no hemorrhage, mass effect, or evidence of acute territorial ischemia by CT criteria. No extra-axial fluid collection is seen. Ventricles, sulci, cisterns: Prominent secondary to involutional change. Intracranial vasculature: There is atherosclerotic calcification of the cavernous carotid and vertebral arteries. Calvarium: Unremarkable. Sinuses and mastoids: There is moderate mucosal thickening in the right maxillary antrum. The remaining visualized paranasal sinuses are clear. The mastoid air cells are well pneumatized. Orbits: The bony orbits are grossly intact. There are bilateral ocular lens implants. IMPRESSION: 1. There is no hemorrhage, mass effect, or evidence of acute territorial ischemia by CT criteria. 2. Age indeterminate lacunar infarct in the left basal ganglia. Correlate clinically. If warranted this could be further assessed by MRI. ACT 112: Negative or not required by law. Electronically signed by: Ankuhs Jeong M.D. 09/20/2023 9:28 AM Brain MRI 09/20/23 11:11 MR brain wo con HISTORY: 78 years-old Female cva acute right hand weakness with stroke like symptoms for approximately 5 days. COMPARISON: Head CT of same day TECHNIQUE: Multiplanar multisequence MRI of the brain was obtained without the use of IV contrast. FINDINGS: 2.5 x 1.3 cm focus of restricted diffusion is noted within the left cutler radiata/aspect of the left lentiform nucleus on image 14 series 4 with mildly decreased signal on ADC map, increased T2/FLAIR signal. No additional restricted diffusion identified. No acute intracranial hemorrhage, midline shift, abnormal extra axial collection, hydrocephalus or other intra-axial mass. Involutional changes with mild to moderate T2/FLAIR hyperintense foci throughout the white matter. Cerebral venous sinuses and major arterial flow voids appear patent. Prior bilateral lens repair. Chronic volume loss with mucosal thickening in the left maxillary sinus. IMPRESSION: 1. Acute to subacute appearing 2.5 cm infarct of the left frontal lobe cutler radiata/superior aspect of the left lentiform nucleus. 2. No acute intracranial hemorrhage, midline shift or hydrocephalus. 3. Involutional changes with chronic microvascular ischemic disease. ACT 112: Negative or not required by law. The above report was generated using voice recognition software. It may contain grammatical, syntax or spelling errors. Electronically signed by: Mehdi Titus M.D. 09/20/2023 3:10 PM Carotid Doppler Study 09/20/23 11:14 ULTRASOUND OF THE CAROTID ARTERIES CLINICAL HISTORY: Stroke. COMPARISON STUDY: No priors. TECHNIQUE: Real-time, grayscale, and color Doppler sonography of the carotid arteries is performed. Images are reviewed in the transverse and longitudinal planes. FINDINGS: The carotid arteries are patent bilaterally and demonstrate antegrade flow. There is minimal atherosclerotic plaque seen in the carotid bulbs. Normal doppler arterial waveforms are seen throughout. Velocity measurements are listed below. Common carotid peak systolic velocity (cm/sec): RIGHT: 64 LEFT: 66 ICA proximal peak systolic velocity (cm/sec): RIGHT: 58 LEFT: 58 ICA mid peak systolic velocity (cm/sec): RIGHT: 69 LEFT: 64 ICA distal peak systolic velocity (cm/sec): RIGHT: 69 LEFT: 59 ICA/CC peak systolic ratio: RIGHT: 1. LEFT: 1.0 Antegrade flow was shown in the vertebral arteries. The external carotid arteries are patent. IMPRESSION: 1. There is no sonographic evidence of hemodynamically significant stenosis in the right or left carotid arterial system. 2. Antegrade flow is shown in the vertebral arteries. ACT 112: Negative or not required by law. Electronically signed by: Ankush Jeong M.D. 09/20/2023 4:18 PM Head MRA 09/20/23 11:14 Brain MRA HISTORY: Right hand weakness. Stroke. TECHNIQUE: 3-D [id number] MRA of the brain was performed without contrast. COMPARISON STUDY: Head CT 09/20/2023. FINDINGS: Visualized intracranial internal carotid arteries, distal vertebral arteries, and basilar artery are widely patent. There is no significant stenosis, occlusion, or aneurysm seen within the bilateral ACAs, MCAs, or night custodian. IMPRESSION: No significant stenosis, occlusion, or aneurysm within the [place] of [place]. ACT 112: Negative or not required by law. Electronically signed by: Sukh Parada M.D. 09/20/2023 3:22 PM KUB X-Ray 09/20/23 11:59 KUB HISTORY: Screening for MRI MRI COMPARISON: None. FINDINGS: Left mid and upper abdominal surgical clips. Calcifications project over the gluteal distribution/lower lateral abdomen. There is mild to moderate colonic fecal retention. Nonobstructive bowel gas pattern. Renal shadows obscured by bowel gas. No renal calculi. No ureteral calculi. No pneumoperitoneum or pneumatosis. No fracture. IMPRESSION: 1. Nonobstructive bowel gas pattern. 2. Left upper and left mid abdominal surgical clips. ACT 112: Negative or not required by law. The above report was generated using voice recognition software. It may contain grammatical, syntax or spelling errors. Electronically signed by: Mehdi Titus M.D. 09/20/2023 1:55 PM Chest CTA 09/21/23 10:55 CT ANGIOGRAM OF THE CHEST CLINICAL HISTORY: Tachycardia. COMPARISON STUDY: No priors. TECHNIQUE: Following the IV administration of 118 cc of Optiray 320, CT angiogram of the chest was performed from the upper abdomen to the thoracic inlet utilizing the pulmonary embolus protocol. Images are reviewed in the axial, sagittal, and coronal planes. 3-D MIPS images are created and assessed. IV contrast was administered without complication. A dose lowering technique was utilized adhering to the principles of ALARA. CT DOSE: 374.11 mGy.cm FINDINGS: Thyroid: Normal in size and heterogeneous in attenuation. Thoracic aorta: There is atherosclerotic calcification of the thoracic aorta, which is normal in caliber and demonstrates standard 3-vessel arch anatomy. No dissection is seen. Pulmonary vasculature: The pulmonary trunk is normal in caliber. There are no filling defects identified in main, lobar, or segmental pulmonary branches to suggest pulmonary embolus. Heart: The heart is enlarged and without pericardial effusion. The coronary arteries are densely calcified. Lungs and pleural spaces: Evaluation of the lung parenchyma is degraded by motion artifact. There is no airspace consolidation or pleural effusion. Dependent scarring/atelectasis is noted at the lung bases. The trachea and central airways are clear. There are scattered calcified granulomas. A 3 mm right middle lobe pulmonary nodule is seen on image #62 and a 3 mm nodule in the lingula is seen on image #99. Mediastinum: There is no mediastinal lymphadenopathy. Katherin: Clear. Axillae: There is no axillary lymphadenopathy. Upper abdomen: Postoperative change is suggested in the stomach. Partially visualized upper abdominal viscera is otherwise grossly unremarkable. Skeletal structures: The skeletal structures are osteopenic. Degenerative change is noted in the shoulders and spine. No lytic or blastic bony lesions are seen. IMPRESSION: 1. There is no evidence of pulmonary embolus in the main, lobar, or segmental pulmonary arteries. 2. There is no airspace consolidation or pleural effusion. 3. Cardiomegaly. 4. Additional findings as above. ACT 112: Negative or not required by law. Electronically signed by: Ankush Jeong M.D. 09/21/2023 12:16 PM Hospital Course (1) Stroke: MRI brain -- Acute to subacute appearing 2.5 cm infarct of the left frontal lobe cutler radiata/superior aspect of the left lentiform nucleus. Likely a small vessel stroke. MRA brain negative. Carotid duplex study negative. Echo w/o source of thrombus. Tele without a.fib. lipid profile parameters noted as below in #2. started asa 81mg daily for secondary prevention. started lipitor 40mg daily for secondary prevention. hba1c without evidence of T2DM (5.4%). PT, OT, speech evals completed --> Rehab not needed post-d/c. OT gave her some exercises to complete on her own at home for the right hand. If she has any ongoing speech difficulties she can pursue speech therapy as outpatient. Otherwise cleared for home with her family. (2) Hyperlipidemia: lipid parameters -- LDL - 111. HDL - 60. Triglycerides - 124. started lipitor 40mg daily. (3) Sinus tachycardia: Suspect 2nd to volume depletion. Orthostatic BPs were positive while here. TSH wnl. CBC wnl. Echo with preserved EF. CTA chest - obtained due to recent travel from [place] - NO PE seen. A fluid bolus followed by maintenance fluids resolved the tachycardia. HRs on day of discharge with walking were low 100s at most. (4) Pulmonary nodule: 3 mm right middle lobe 3 mm nodule in the lingula no history of tobacco use no follow-up CTs needed (5) Chronic joint pain: By report was placed on methotrexate at some point in the past by a physician in [place]. Recommended once daily folic acid 1mg due to the chronic methotrexate usage. She had no joint issues while here. (6) Peptic ulcer: Diagnosed via EGD while in [place] recently. In light of concurrent aspirin use will utilize pantoprazole 40mg once daily to heal the ulcer and to prevent additional upper GI complications. Plan DVT proph - lovenox 40mg daily utilized while here Total Time Total Time Spent Total Time Spent (In Minutes): 25 Discharge Plan Discharge Items Patient Disposition: Home - Self-Care Reason For Visit: Concern for stroke Discharge Diagnosis: 1. Mild right hand weakness and mild slurred speech - due to stroke in the left side of brain 2. Mild hyperlipidemia (high cholesterol) 3. Recently diagnosed stomach ulcer (via endoscopy in [place]) 4. Chronic joint pain 5. Tiny pulmonary nodules x [address] scan of chest - no follow-up needed Activity: As commented below Activity Comment: Light activities only for 1 week, then resume normal activities thereafter Non-emergency contact: Primary Care Provider Call non-emergency contact if: you have any medication questions and your symptoms worsen Follow-up/Referrals: Ana M Wasserman PA-C [Primary Care Provider] - 10/01/23 1:30 pm (see Ms Wasserman within 5-7 days ) Diet: Heart Healthy Addtl Attending Provider Instructions: Mrs Du, You were hospitalized due to a small stroke on the left side of the brain. This caused your speech difficulty and the right hand weakness. It is likely that the stroke was caused by a very small artery that was clogged with plaque/cholesterol. Pictures of the large blood vessels of the head and neck were normal. Your echocardiogram was normal. We did not see any blood clot in your heart that could have caused the stroke. Your heart monitoring did not show an abnormal heart rhythm called a.fib which can cause a stroke. To prevent a future stroke you will need to take additional medicines. In addition to the above we performed a CT scan of your lungs to make sure you did not have blood clots from your recent travels to and from [place]. This scan was negative for blood clots of the lungs. 2 tiny pulmonary nodules were seen incidentally but no follow-up is needed for these. Most pulmonary nodules, especially when small like yours, are typically benign (not harmful). You mentioned that you were diagnosed with a stomach ulcer by way of endoscopy in [place]. Although it looks as if you were placed on an acid bingo attendant I would recommend a stronger one - especially since we are putting you on baby aspirin daily. Aspirin can cause stomach ulcers and stomach irritation. Recommendations - 1. take fapf-lzv-rteieqn baby aspirin 81mg once daily. 2. take cholesterol medication - atorvastatin 40mg once daily. 3. since the doctor in [place] put you on methotrexate 3 days/week for your joints you will need to take a folic acid supplement daily. Thus, take folic acid 1mg daily. 4. to heal the stomach ulcer you were diagnosed with and to prevent additional ulcers please take - * pantoprazole 40mg once daily each morning * if you were taking omeprazole prior to this hospitalization please go ahead and stop it 5. plan to take it easy and rest for the next 5-7 days then gradually increase your activities. 6. if you continue to have stomach problems despite treating your ulcer please speak to Ms Wasserman about this. 7. please continue to use the putty for the right hand exercises that our therapy department showed you. This will help strengthen your right hand. 8. When you go to the [facility] in [place] please bring the 2 coupons and the discount for your prescriptions will be applied. This will save you hundreds of dollars. Follow-up - see Ms Wasserman THIS WEEK Return to [facility] if - * you have worsening stroke symptoms as listed below * you have shortness of breath or chest pains * you have blood in your stools * you have black/dark/tarry stools * you have worsening abdominal pains * any other concerns It was our pleasure to care for you! -Dr Taz Rubin Reference Librarian Provider Instructions: Risk Factors for Stroke: You can reduce your chances of stroke by working with your medical provider to adopt a healthy lifestyle. Some specific ways to lower your chance of stroke are: * If you are a smoker, now is the time to stop smoking cigarettes * If you are diabetic, improve the control of your blood sugars * Avoid excessive amounts of alcohol * Control high blood pressure * Lose weight if you are overweight * Be sure to lead an active lifestyle * Eat a healthy diet low in salt, cholesterol and fat You should know about other risk factors for stroke that you are unable to control. These include: * Age 55 years or older * Male gender * Certain racial groups: , or / * Family History of Stroke, Mini stroke or Heart Attack * Sickle Cell Disease Who to Call and When: Medical Emergencies: Call 911 immediately if you experience any of the following warning signs and symptoms of Stroke: * Sudden numbness or weakness of the face, arm or leg, especially on one side of the body * Sudden confusion, trouble speaking or understanding * Sudden trouble seeing in one or both eyes * Sudden trouble walking, dizziness, loss of balance or coordination * Sudden severe headache with no cause Do not delay calling 911 if you experience any warning signs or symptoms of a stroke. Delay in seeking medical attention may affect what treatments can be given to you. . Pending Studies at Discharge: No Stand-Alone Forms: [facility], Smoking Cessation, Medications to Prevent Stroke Medications and DC Order Prescriptions: New aspirin 81 mg Tablet,Delayed Release (Dr/Ec) 81 mg PO QAM Qty: 100 3RF Rx Instructions: purchase kqye-kji-xszdtqe folic acid 1 mg tablet 1 mg PO DAILY Qty: 30 2RF pantoprazole [Protonix] 40 mg tablet,delayed release (DR/EC) 40 mg PO QAM Qty: 30 11RF Rx Instructions: for your stomach ulcer & heartburn atorvastatin [Lipitor] 40 mg tablet 40 mg PO DAILY Qty: 30 11RF Rx Instructions: for high cholesterol methotrexate sodium 2.5 mg tablet 2.5 mg PO .Sunday/Sunday/Sun Qty: 30 0RF Rx Instructions: prescribed by the doctor in [place] for your joints Continued fluticasone propionate 50 mcg/actuation spray,suspension 2 sprays INTNAS DAILY PRN (Reason: Other) Rx Instructions: administer into each nostril Discontinued omeprazole 20 mg capsule,delayed release(DR/EC) 20 mg PO DAILY Qty: 90 1RF Discharge Orders: Discharge Order (Routine); Ordered 09/22/23 Ordered By: Jose Bird/Other Patient Handouts: Cholesterol Lifestyle Changes Admission Data Admit Date/Time: 09/21/23 17:36 Attending Provider: Jose Mcghee Admit Provider: Vu Shaffer Primary Care Provider: Ana M Wasserman Other Providers: Vu Shaffer Other Interventions: Discharge Summary Assessment (RN) Last Done: 09/22/23 10:10 Coding Level of Care Code 98168 IN/OBS DISCH 30 MIN/LESS Diagnoses Stroke I63.9 Hyperlipidemia E78.5 Sinus tachycardia R00.0 Pulmonary nodule R91.1 Chronic joint pain M25.50; G89.29 Peptic ulcer K27.9
== END 2023-09-22 12:43 | disposition home or self-care (01) | DRG 66 ==
LOC: 4W 08:22 → ED 08:22 → SUATTDRO 11:30 → 4W 12:18
DX: R91.8 Other nonspecific abnormal finding of lung field; K25.9 Gastric ulcer, unspecified as acute or chronic, without hemorrhage or perforation; I63.81 Other cerebral infarction due to occlusion or stenosis of small artery; Z79.899 Other long term (current) drug therapy; R27.8 Other lack of coordination; R47.81 Slurred speech; M47.892 Other spondylosis, cervical region; K21.9 Gastro-esophageal reflux disease without esophagitis; M19.09 Primary osteoarthritis, other specified site; M81.0 Age-related osteoporosis without current pathological fracture; E78.5 Hyperlipidemia, unspecified; R00.0 Tachycardia, unspecified; R29.700 NIHSS score 0